=== PATIENT | male | born 1995 | race Caucasian/White ===

== ENCOUNTER 2016-08-09 00:25 | Emergency (ER) | payer BC ==
--- NOTE | 2016-08-09 02:43 | ED ORDER SUMMARY ---
..... Patient: YVAN TY OrderSheet [facility] VisitID: [id number] [place] [address] 21y, M Registration Date/Time: 08/09/2016 ORDER SHEET Weight: 74.8 kg (stated) Allergies: No Known Drug Allergy GENERAL ORDERS: Splint (UE) (Right) (Metal / foam, Volar) (02:08/09/2016 Alvin SOTO) (2:40 HSoule) Dress Wounds (:08/09/2016 Alvin SOTO) (2:40 HSoule) MEDICATION ORDERS: Keflex PO 500 mg (NOW) (02:08/09/2016 Alvin SOTO) (Ack 2:29 HSoule) (2:32 HSoule) Hydrocodone-APAP PO 5/325 mg (NOW) (02:08/09/2016 Alvin SOTO) (Ack 2:29 HSoule) (2:32 HSoule) IV FLUIDS: ORDER SHEET NOTES: [Electronically signed by Sunita Parker (03:02 08/09/2016)] [Electronically signed by Joseph Reddy MD (21:06 08/11/2016)] [Electronically locked/signed by Sunita Parker (03:02 08/09/2016)]
--- NOTE | 2016-08-09 02:43 | ED NURSING NOTES ---
Clinical Report - Nurses [facility] [place] [address] 08/09/2016 0:25 Patient: YVAN TY TRIAGE Triage time 01:Aug 09 2016. Acuity: LEVEL 3. Chief Complaint: LACERATION. SEPSIS SCREEN: Sepsis Screen: negative. Negative (no infection suspected/documented). --01:03 Sunita Parker 01:00 08/09/16. BP: 115/61. HR: 75. RR: 18. O2 saturation: 100% on room air. Temp: 98.4 F (oral). Pain level now: 02/19. --01:03 Sunita Parker KEVIN COMA SCORE: [place] Coma Scale: 15- eyes open spontaneously (4); best verbal response- oriented x 4 (5); best motor response- obeys commands (6). --01:03 Sunita Parker. Weight: 74.8 kg stated. Height/Length: 72 inches Per Patient. BMI: 22.4. --01:00 Sunita Parker. Medications Adderall Oral. --01:02 Sunita Parker. Allergies No Known Drug Allergy. --01:02 Sunita Parker. History Arrived by private vehicle. Historian: patient. Accompanied by family. Primary physician (none). Location of injuries: right palm, right middle finger and right ring finger. This occurred just prior to arrival. Occurred at home. ( Patient states he cut his fingers on his right hand when a glass broke while he was holding it. He reports a current tetanus status. Patient reports he was able to remove all the glass from the lacerations.). PAST MEDICAL HX: Tetanus status: up-to-date. Immunizations: up-to-date. SOCIAL HX: Heavy tobacco smoker (cigarette)- less than 1 pack per day. History of drug use: marijuana. No alcohol use. No infectious disease exposure. ABUSE ASSESSMENT: No report of abuse. FALL RISK ASSESSMENT: Fall risk assessment completed. No fall risk identified. NUTRITIONAL RISK ASSESSMENT: The nutritional risk assessment revealed no deficiencies. FUNCTIONAL ASSESSMENT: Functional assessment: no impairments noted. LEARNING NEEDS ASSESSMENT: The learning needs assessment revealed no barriers. SKIN INTEGRITY ASSESSMENT: Skin integrity risk assessment completed. No skin integrity risk identified. --01:03 Sunita Parker. PROBLEMS: ADD - Attention Deficit Disorder. Hepatitis. --01:02 Sunita Parker. ADDITIONAL SURGERIES: Appendectomy. --01:02 Sunita aPrker. Interventions ID band on patient. To treatment room. --01:03 Sunita Parker. PHYSICAL ASSESSMENT Ambulatory to room. GENERAL / NEURO / PSYCH: Alert. Oriented X 4. Appears in no acute distress. RESPIRATORY: Respirations not labored. CVS: Normal heart rate and rhythm. EXTREMITIES: Right hand: subcutaneous 2.5 cm laceration with controlled bleeding localized to the distal and palmar aspect of the hand. SKIN: Skin is warm and dry. --01:04 Sunita Parker. NURSING PROGRESS NOTES Warming measures: blanket applied. Reassurance given to the patient. Two patient identifiers checked. Call light placed in reach. Side rails up x 1. Bed placed in lowest position. Brakes of bed on. Patient ready for evaluation- chart flagged. --01:04 Sunita Parker Applied clean dressing (Dressing wound with Sof-form stretch Gauze Bandage). Finger splint applied to right middle finger and ring finger by tech. --02:43 Roseanna Montez 02:25 08/09/16. WOUND REPAIR: Wound repair performed by ED physician. Assisted by one tech. The wound is linear. Preparation: suture tray set-up with 1% lidocaine. Wound cleansed per physician with sterile saline. Procedure: wound repaired with sutures (1 suture pack). Post-procedure: he was stable, no complications, bleeding controlled, neuro-vascular status intact distal to wound and dressing applied. Total time of assist / procedure: 15 minutes. --02:58 Sunita Parker 02:32 08/09/2016 Keflex (Cephalexin) PO Capsules 500 mg given. Allergies verified and confirmed 5 rights. --02:32 Sunita Parker 02:32 08/09/2016 Hydrocodone-APAP (Hydrocodone-Acetaminophen) PO 5/325 mg Tablets 1 tab given. Allergies verified, confirmed 5 rights and sedative warning given to the patient and patient's loop sewer. --02:32 Sunita Parker. DISPOSITION / DISCHARGE Condition at departure: improved and stable. No learning barriers present. Discharge instructions provided and reviewed with loop sewer and the patient. Reviewed medication(s) side effects, precautions, dosing and course information. Prescription(s) given to the patient. Reviewed wound care instructions. Activity restrictions reviewed (Limit use of right hand until cleared). Patient verbalized understanding. Written instructions provided in Indonesian. ( Follow up with hand surgeon in three days. Contact information provided to patient. Sutures may be removed in 7-10 days.). The patient was discharged by the physician. He was discharged home and accompanied by loop sewer. He left the Emergency Department ambulatory and via private vehicle. Project Builder driving. --02:57 Sunita Parker 02:56 08/09/16. BP: 136/87. HR: 68. RR: 18. O2 saturation: 98% on room air. Temp: deferred. Pain level now: 03/22. --02:57 Sunita Parker. Locked/Released at 08/09/2016 3:02 by Sunita Parker,
--- NOTE | 2016-08-09 02:43 | ED CLINICAL REPORT ---
Clinical Report - Physicians/Mid Levels [facility] [address] [place] [address] 08/09/2016 0:25 Patient: YVAN TY Time Seen: 01:19 Aug 09 2016. Arrived- By private vehicle. Historian- patient. CPT: ER phys charges level 3 plus (#242923). 2.6-7.5 ch layer of neck, hands (#[id number]). HISTORY OF PRESENT ILLNESS Chief Complaint: Injury to the right hand. The injury happened just prior to arrival. The patient sustained a laceration from broken glass. Occurred at home. Patient is experiencing moderate pain. No other injury. REVIEW OF SYSTEMS The patient sustained a laceration. No swelling, tingling, numbness, weakness or foreign body. All systems otherwise negative, except as recorded above. PAST HISTORY See nurses notes. ADD - Attention Deficit Disorder. Hepatitis. Appendectomy. The patient's dominant hand is the right. Tetanus immunization status is up-to-date. Medications: Adderall Oral. Allergies: No Known Drug Allergy. SOCIAL HISTORY Heavy tobacco smoker (cigarette)- less than 1 pack per day. History of drug use: marijuana. ADDITIONAL NOTES The nursing notes have been reviewed. PHYSICAL EXAM Vital Signs: 08/09/2016 01:00 BP: 115/61. HR: 75. RR: 18. O2 saturation: 100%. Temp: 98.4 F. Pain level now: 8/10. Appearance: Alert. Patient in mild distress. Skin: Skin warm. Extremities: Right middle finger: moderate tenderness and deep 2.0 cm laceration of the volar aspect and PIP joint; limited movement secondary to pain (diminished flexion). Neurovascular intact distally. No swelling. Right ring finger: moderate tenderness and subcutaneous 1.0 cm laceration of the volar aspect and PIP joint. Neurovascular intact distally. No swelling or deformity. No limitation in movement. No wrist injury. Extremities otherwise negative. Neuro, Vascular and Tendons: Vascular status intact. Sensation intact. Motor intact. Partial flexor tendon injury seen in right middle finger involving 75% of tendon diameter. Neuro: Oriented X 3. No motor deficit. No sensory deficit. PROGRESS AND PROCEDURES Laceration Repair: Location: right middle finger. Length: 2.0cm. Complexity: simple (local anesthesia used and sutured). Wound depth/shape- subcutaneous and linear. Distal neuro/vascular/tendon status normal. Tendon injury and laceration present. (75 % flexor tendon lac with penetration into the joint capsule.). Local anesthesia provided using 1% lidocaine with bicarb. Prepped with Hibiclens. Wound explored, cleansed and irrigated extensively with normal saline. Closure of skin: interrupted 4-0 (5 sutures). Post-procedure: he is stable and there are no complications. Bleeding is controlled and neuro-vascular status is intact distal to the wound. Dressing applied. Tetanus immunization up-to-date. Estimated blood loss: 1 mL. Laceration Repair #2: Location: right ring finger. Length: 1.0cm. Complexity: simple (local anesthesia used and sutured). Wound depth/shape- subcutaneous and linear. Wound is clean. Distal neuro/vascular/tendon status normal. Tendon examined. No tendon deficit. Local anesthesia provided using 1% lidocaine with bicarb. Prepped with Hibiclens. Wound explored, cleansed and irrigated extensively with normal saline. Closure of skin: interrupted 4-0 (2 sutures). Post-procedure: he is stable and there are no complications. Bleeding is controlled and neuro-vascular status is intact distal to the wound. Dressing applied. Tetanus immunization up-to-date. Estimated blood loss: 1 mL. Course of Care: PATIENT WILL NEED HAND SURGEON REFERRAL FOR FLEXOR TENDON LACERATION. HE'LL ALSO NEED ANTIBIOTICS FOR JOINT CAPSULE PENETRATION DIP OF THE MIDDLE FINGER. Patient/family counseled. Disposition: Discharged. Condition: stable. CLINICAL IMPRESSION Multiple deep lacerations to the right middle finger and right ring finger.No foreign body present or right fingernail injury. Partial tendon laceration of the right flexor of the third finger. Laceration is at the level of the hand (75%). No infection present. Joint capsule laceration PIP, middle , right finger. INSTRUCTIONS Elevate affected areas above chest level today, for one days. Wear aluminum splint until released. Protect wound and keep wound area clean. (Ring finger stitches can be removed in 7 days.). Change dressing twice daily. Keep wounds dry. You may wash wounds briefly, then dry. Apply neosporin twice daily. Do not work with right hand until released. (The middle finger needs to be evaluated in 3 to 5 days by a hand surgeon.). Warnings: INFECTION: Watch for signs of infection (increasing heat and redness, pus-like drainage, swelling, or increased pain). Return or see your doctor if these signs occur. Tetanus shot not given. GENERAL WARNINGS: Return or contact your physician immediately if your condition worsens or changes unexpectedly, if not improving as expected, or if other problems arise. Your Current Medications: CONTINUE TAKING THE FOLLOWING MEDICATIONS: Adderall Oral. Prescription Medications: Hydrocodone/APAP 5mg/325mg: take 1 to 2 orally every 6 hours as needed for pain. Dispense fifteen (15). No refills. Cephalexin 500mg: take 1 tab orally every 6 hours for 7 days. No refills Follow-up: Follow up with your doctor in one week. Call for an appointment. Follow up with a hand surgeon Dr Stephens Hand surgeon: [address] [place] [address] [phone], in three days. Call for the next available appointment. Understanding of the discharge instructions verbalized by patient. Discharge instructions reviewed with and understanding was verbalized by furnace operator oil or gas. (Electronically signed by Joseph Reddy MD 08/11/2016 21:06)
--- NOTE | 2016-08-09 02:43 | ED NURSING NOTES ---
Clinical Report - Nurses [facility] [place] [address] 08/09/2016 0:25 Patient: YVAN TY TRIAGE Triage time 01:Aug 09 2016. Acuity: LEVEL 3. Chief Complaint: LACERATION. SEPSIS SCREEN: Sepsis Screen: negative. Negative (no infection suspected/documented). --01:03 Sunita Parker 01:00 08/09/16. BP: 115/61. HR: 75. RR: 18. O2 saturation: 100% on room air. Temp: 98.4 F (oral). Pain level now: 02/19. --01:03 Sunita Parker KEVIN COMA SCORE: [place] Coma Scale: 15- eyes open spontaneously (4); best verbal response- oriented x 4 (5); best motor response- obeys commands (6). --01:03 Sunita Parker. Weight: 74.8 kg stated. Height/Length: 72 inches Per Patient. BMI: 22.4. --01:00 Sunita Parker. Medications Adderall Oral. --01:02 Sunita Parker. Allergies No Known Drug Allergy. --01:02 Sunita Parker. History Arrived by private vehicle. Historian: patient. Accompanied by family. Primary physician (none). Location of injuries: right palm, right middle finger and right ring finger. This occurred just prior to arrival. Occurred at home. ( Patient states he cut his fingers on his right hand when a glass broke while he was holding it. He reports a current tetanus status. Patient reports he was able to remove all the glass from the lacerations.). PAST MEDICAL HX: Tetanus status: up-to-date. Immunizations: up-to-date. SOCIAL HX: Heavy tobacco smoker (cigarette)- less than 1 pack per day. History of drug use: marijuana. No alcohol use. No infectious disease exposure. ABUSE ASSESSMENT: No report of abuse. FALL RISK ASSESSMENT: Fall risk assessment completed. No fall risk identified. NUTRITIONAL RISK ASSESSMENT: The nutritional risk assessment revealed no deficiencies. FUNCTIONAL ASSESSMENT: Functional assessment: no impairments noted. LEARNING NEEDS ASSESSMENT: The learning needs assessment revealed no barriers. SKIN INTEGRITY ASSESSMENT: Skin integrity risk assessment completed. No skin integrity risk identified. --01:03 Sunita Parker. PROBLEMS: ADD - Attention Deficit Disorder. Hepatitis. --01:02 Sunita Parker. ADDITIONAL SURGERIES: Appendectomy. --01:02 Sunita Parker. Interventions ID band on patient. To treatment room. --01:03 Sunita Parker. PHYSICAL ASSESSMENT Ambulatory to room. GENERAL / NEURO / PSYCH: Alert. Oriented X 4. Appears in no acute distress. RESPIRATORY: Respirations not labored. CVS: Normal heart rate and rhythm. EXTREMITIES: Right hand: subcutaneous 2.5 cm laceration with controlled bleeding localized to the distal and palmar aspect of the hand. SKIN: Skin is warm and dry. --01:04 Sunita Parker. NURSING PROGRESS NOTES Warming measures: blanket applied. Reassurance given to the patient. Two patient identifiers checked. Call light placed in reach. Side rails up x 1. Bed placed in lowest position. Brakes of bed on. Patient ready for evaluation- chart flagged. --01:04 Sunita Parker Applied clean dressing (Dressing wound with Sof-form stretch Gauze Bandage). Finger splint applied to right middle finger and ring finger by tech. --02:43 Roseanna Montez 02:25 08/09/16. WOUND REPAIR: Wound repair performed by ED physician. Assisted by one tech. The wound is linear. Preparation: suture tray set-up with 1% lidocaine. Wound cleansed per physician with sterile saline. Procedure: wound repaired with sutures (1 suture pack). Post-procedure: he was stable, no complications, bleeding controlled, neuro-vascular status intact distal to wound and dressing applied. Total time of assist / procedure: 15 minutes. --02:58 Sunita Parker 02:32 08/09/2016 Keflex (Cephalexin) PO Capsules 500 mg given. Allergies verified and confirmed 5 rights. --02:32 Sunita Parker 02:32 08/09/2016 Hydrocodone-APAP (Hydrocodone-Acetaminophen) PO 5/325 mg Tablets 1 tab given. Allergies verified, confirmed 5 rights and sedative warning given to the patient and patient's director drug safety. --02:32 Sunita Parker. DISPOSITION / DISCHARGE Condition at departure: improved and stable. No learning barriers present. Discharge instructions provided and reviewed with director drug safety and the patient. Reviewed medication(s) side effects, precautions, dosing and course information. Prescription(s) given to the patient. Reviewed wound care instructions. Activity restrictions reviewed (Limit use of right hand until cleared). Patient verbalized understanding. Written instructions provided in Italian. ( Follow up with hand surgeon in three days. Contact information provided to patient. Sutures may be removed in 7-10 days.). The patient was discharged by the physician. He was discharged home and accompanied by director drug safety. He left the Emergency Department ambulatory and via private vehicle. Swim Coach driving. --02:57 Sunita Parker 02:56 08/09/16. BP: 136/87. HR: 68. RR: 18. O2 saturation: 98% on room air. Temp: deferred. Pain level now: 03/22. --02:57 Sunita Parker. Locked/Released at 08/09/2016 3:02 by Sunita Parker,
--- NOTE | 2016-08-09 02:43 | ED CLINICAL REPORT ---
Clinical Report - Physicians/Mid Levels [facility] [address] [place] [address] 08/09/2016 0:25 Patient: YVAN TY Time Seen: 01:19 Aug 09 2016. Arrived- By private vehicle. Historian- patient. CPT: ER phys charges level 3 plus (#027855). 2.6-7.5 ch layer of neck, hands (#[id number]). HISTORY OF PRESENT ILLNESS Chief Complaint: Injury to the right hand. The injury happened just prior to arrival. The patient sustained a laceration from broken glass. Occurred at home. Patient is experiencing moderate pain. No other injury. REVIEW OF SYSTEMS The patient sustained a laceration. No swelling, tingling, numbness, weakness or foreign body. All systems otherwise negative, except as recorded above. PAST HISTORY See nurses notes. ADD - Attention Deficit Disorder. Hepatitis. Appendectomy. The patient's dominant hand is the right. Tetanus immunization status is up-to-date. Medications: Adderall Oral. Allergies: No Known Drug Allergy. SOCIAL HISTORY Heavy tobacco smoker (cigarette)- less than 1 pack per day. History of drug use: marijuana. ADDITIONAL NOTES The nursing notes have been reviewed. PHYSICAL EXAM Vital Signs: 08/09/2016 01:00 BP: 115/61. HR: 75. RR: 18. O2 saturation: 100%. Temp: 98.4 F. Pain level now: 8/10. Appearance: Alert. Patient in mild distress. Skin: Skin warm. Extremities: Right middle finger: moderate tenderness and deep 2.0 cm laceration of the volar aspect and PIP joint; limited movement secondary to pain (diminished flexion). Neurovascular intact distally. No swelling. Right ring finger: moderate tenderness and subcutaneous 1.0 cm laceration of the volar aspect and PIP joint. Neurovascular intact distally. No swelling or deformity. No limitation in movement. No wrist injury. Extremities otherwise negative. Neuro, Vascular and Tendons: Vascular status intact. Sensation intact. Motor intact. Partial flexor tendon injury seen in right middle finger involving 75% of tendon diameter. Neuro: Oriented X 3. No motor deficit. No sensory deficit. PROGRESS AND PROCEDURES Laceration Repair: Location: right middle finger. Length: 2.0cm. Complexity: simple (local anesthesia used and sutured). Wound depth/shape- subcutaneous and linear. Distal neuro/vascular/tendon status normal. Tendon injury and laceration present. (75 % flexor tendon lac with penetration into the joint capsule.). Local anesthesia provided using 1% lidocaine with bicarb. Prepped with Hibiclens. Wound explored, cleansed and irrigated extensively with normal saline. Closure of skin: interrupted 4-0 (5 sutures). Post-procedure: he is stable and there are no complications. Bleeding is controlled and neuro-vascular status is intact distal to the wound. Dressing applied. Tetanus immunization up-to-date. Estimated blood loss: 1 mL. Laceration Repair #2: Location: right ring finger. Length: 1.0cm. Complexity: simple (local anesthesia used and sutured). Wound depth/shape- subcutaneous and linear. Wound is clean. Distal neuro/vascular/tendon status normal. Tendon examined. No tendon deficit. Local anesthesia provided using 1% lidocaine with bicarb. Prepped with Hibiclens. Wound explored, cleansed and irrigated extensively with normal saline. Closure of skin: interrupted 4-0 (2 sutures). Post-procedure: he is stable and there are no complications. Bleeding is controlled and neuro-vascular status is intact distal to the wound. Dressing applied. Tetanus immunization up-to-date. Estimated blood loss: 1 mL. Course of Care: PATIENT WILL NEED HAND SURGEON REFERRAL FOR FLEXOR TENDON LACERATION. HE'LL ALSO NEED ANTIBIOTICS FOR JOINT CAPSULE PENETRATION DIP OF THE MIDDLE FINGER. Patient/family counseled. Disposition: Discharged. Condition: stable. CLINICAL IMPRESSION Multiple deep lacerations to the right middle finger and right ring finger.No foreign body present or right fingernail injury. Partial tendon laceration of the right flexor of the third finger. Laceration is at the level of the hand (75%). No infection present. Joint capsule laceration PIP, middle , right finger. INSTRUCTIONS Elevate affected areas above chest level today, for one days. Wear aluminum splint until released. Protect wound and keep wound area clean. (Ring finger stitches can be removed in 7 days.). Change dressing twice daily. Keep wounds dry. You may wash wounds briefly, then dry. Apply neosporin twice daily. Do not work with right hand until released. (The middle finger needs to be evaluated in 3 to 5 days by a hand surgeon.). Warnings: INFECTION: Watch for signs of infection (increasing heat and redness, pus-like drainage, swelling, or increased pain). Return or see your doctor if these signs occur. Tetanus shot not given. GENERAL WARNINGS: Return or contact your physician immediately if your condition worsens or changes unexpectedly, if not improving as expected, or if other problems arise. Your Current Medications: CONTINUE TAKING THE FOLLOWING MEDICATIONS: Adderall Oral. Prescription Medications: Hydrocodone/APAP 5mg/325mg: take 1 to 2 orally every 6 hours as needed for pain. Dispense fifteen (15). No refills. Cephalexin 500mg: take 1 tab orally every 6 hours for 7 days. No refills Follow-up: Follow up with your doctor in one week. Call for an appointment. Follow up with a hand surgeon Dr Stephens Hand surgeon: [address] [place] [address] [phone], in three days. Call for the next available appointment. Understanding of the discharge instructions verbalized by patient. Discharge instructions reviewed with and understanding was verbalized by enamel buffer. (Electronically signed by Joseph Reddy MD 08/11/2016 21:06)
--- NOTE | 2016-08-09 02:43 | ED ORDER SUMMARY ---
..... Patient: YVAN TY OrderSheet [facility] VisitID: [id number] [place] [address] 21y, M Registration Date/Time: 08/09/2016 ORDER SHEET Weight: 74.8 kg (stated) Allergies: No Known Drug Allergy GENERAL ORDERS: Splint (UE) (Right) (Metal / foam, Volar) (02:08/09/2016 Alvin SOTO) (2:40 HSoule) Dress Wounds (:08/09/2016 Alvin SOTO) (2:40 HSoule) MEDICATION ORDERS: Keflex PO 500 mg (NOW) (02:08/09/2016 Alvin SOTO) (Ack 2:29 HSoule) (2:32 HSoule) Hydrocodone-APAP PO 5/325 mg (NOW) (02:08/09/2016 Alvin SOTO) (Ack 2:29 HSoule) (2:32 HSoule) IV FLUIDS: ORDER SHEET NOTES: [Electronically signed by Sunita Parker (03:02 08/09/2016)] [Electronically signed by Joseph Reddy MD (21:06 08/11/2016)] [Electronically locked/signed by Sunita Parkre (03:02 08/09/2016)]
--- NOTE | 2016-08-11 21:07 | ED DISCHARGE INSTRUCTIONS ---
Patient: YVAN TY General Instructions [facility] VisitID: [id number] [place] [address] 21y, M Registration Date/Time: 08/09/2016 Multiple deep lacerations to the right middle finger and right ring finger.No foreign body present or right fingernail injury. Partial tendon laceration of the right flexor of the third finger. Laceration is at the level of the hand (75%). No infection present. Joint capsule laceration PIP, middle , right finger. INSTRUCTIONS Elevate affected areas above chest level today, for one days. Wear aluminum splint until released. Protect wound and keep wound area clean. (Ring finger stitches can be removed in 7 days.). Change dressing twice daily. Keep wounds dry. You may wash wounds briefly, then dry. Apply neosporin twice daily. Do not work with right hand until released. (The middle finger needs to be evaluated in 3 to 5 days by a hand surgeon.). Warnings: INFECTION: Watch for signs of infection (increasing heat and redness, pus-like drainage, swelling, or increased pain). Return or see your doctor if these signs occur. Tetanus shot not given. GENERAL WARNINGS: Return or contact your physician immediately if your condition worsens or changes unexpectedly, if not improving as expected, or if other problems arise. Your Current Medications: CONTINUE TAKING THE FOLLOWING MEDICATIONS: Adderall Oral. Prescription Medications: Hydrocodone/APAP 5mg/325mg: take 1 to 2 orally every 6 hours as needed for pain. Dispense fifteen (15). No refills. Cephalexin 500mg: take 1 tab orally every 6 hours for 7 days. No refills Follow-up: Follow up with your doctor in one week. Call for an appointment. Follow up with a hand surgeon Dr Stephens Hand surgeon: [address] [place] [address] [phone] [place], in three days. Call for the next available appointment. Understanding of the discharge instructions verbalized by patient. Discharge instructions reviewed with and understanding was verbalized by energy conservation representative. ADDITIONAL INFORMATION Laceration (All Closures) Alaceration is a cut through the skin. This will usually require stitches (sutures) or olvin if it is deep. Minor cuts may be treated with a surgical tape closure orskin glue. Home care The following guidelines will help you care for your laceration at home: Extremity, face, or trunk wounds Keep the wound clean and dry. If a bandage was applied and it becomes wet or dirty, replace it. Otherwise, leave it in place for the first 24 hours. If stitches or olvin were used, clean the wound daily. After removing the bandage, wash the area with soap and water. Use a wet cotton swab to loosen and remove any blood or crust that forms. The doctor may prescribe an antibiotic cream or ointment to prevent infection. Do not stop taking this medication until you have finished the prescribed course or the doctor tells you to stop. The doctor may also prescribe medications for pain. Follow the doctors instructions for taking these medications. You may remove the bandage to shower as usual after the first 24 hours, but do not soak the area in water (no swimming) until the stitches or olvin are removed. If surgical tape was used, keep the area clean and dry. If it becomes wet, blot it dry with a towel. If skin glue was used, do not scratch, rub, or pick at the adhesive film. Do not place tape directly over the film. Do not apply liquid, ointment, or creams to the wound while the film is in place. Do not clean the wound with peroxide and do not apply ointments. Avoid activities that cause heavy sweating until the film has fallen off. Protect the wound from prolonged exposure to sunlight or tanning lamps. You may shower as usual but do not soak the wound in water (no baths or swimming). The film will fall off by itself in 510 days. Scalp wounds During the first two days, you may carefully rinse your hair in the shower to remove blood, glass or dirt particles. After two days, you may shower and shampoo your hair normally. Do not soak your scalp in the tub or go swimming until the stitches or olvin have been removed. Talk with your doctor before applying any antibiotic ointment to the wound. Mouth wounds Eat soft foods to reduce pain. If the cut is inside of your mouth, clean by rinsing after each meal and at bedtime with a mixture of equal parts water and hydrogen peroxide (do not swallow!). Or, you can use a cotton swab to directly apply hydrogen peroxide onto the cut. Mouth wounds can be painful when eating. You may use an [id number] local numbing solution for pain relief. If this is not available, you may use any numbing solution for teething babies. You may apply this directly to the sores with a cotton-tip swab or with your finger. Follow-up care Follow up with your health care provider. Most skin wounds heal within ten days. Mouth and facial wounds heal within five days. However, even with proper treatment, a wound infection may sometimes occur. Therefore, you should check the wound daily for signs of infection listed below. Stitches should be removed from the face within five days; stitches and olvin should be removed from other parts of the body within 714 days. If dissolving stitches were used in the mouth, these will fall out or dissolve without the need for removal. If tape closures were used, remove them yourself if they have not fallen off after 7 days. Ifskin glue was used, the film will fall off by itself in 510 days. When to seek medical care Get prompt medical attention if any of these occur: Bleeding not controlled by direct pressure Signs of infection, including increasing pain in the wound, increasing wound redness or swelling, or pus coming from the wound Fever of 100.4F (38C) or higher, or as directed by your health care provider Stitches or olvin come apart or fall out or surgical tape falls off before 7 days Wound edges re-open Laceration, Extremity (Sutures, [place], Or Tape) A laceration is a cut through the skin. This will usually require stitches (sutures) or olvin if it is deep. Minor cuts may be treated with surgical tape closures. Home care The following guidelines will help you care for your laceration at home: Keep the wound clean and dry. If a bandage was applied and it becomes wet or dirty, replace it. Otherwise, leave it in place for the first 24 hours, then change it once a day or as directed. If stitches or olvin were used, clean the wound daily: After removing the bandage, wash the area with soap and water. Use a wet cotton swab to loosen and remove any blood or crust that forms. After cleaning, keep the wound clean and dry. Talk with your doctor before applying any antibiotic ointment to the wound. Reapply the bandage. You may remove the bandage to shower as usual after the first 24 hours, but do not soak the area in water (no swimming) until the stitches or olvin are removed. If surgical tape closures were used, keep the area clean and dry. If it becomes wet, blot it dry with a towel. The doctor may prescribe an antibiotic cream or ointment to prevent infection. Do not stop taking this medication until you have finished the prescribed course or the doctor tells you to stop. The doctor may also prescribe medications for pain. Follow the doctors instructions for taking these medications. If you have chronic liver or kidney disease or ever had a stomach ulcer or GI bleeding, talk with your doctor before using these medicines. Follow-up care Follow up with your health care provider. Most skin wounds heal within ten days. However, an infection may sometimes occur despite proper treatment. Therefore, check the wound daily for the signs of infection listed below. Stitches and olvin should be removed within 714 days. If surgical tape closures were used, you may remove them after 10 days, if they have not fallen off by then. Notify your doctor if you notice persistent numbness or weakness in the injured extremity. (Note:A radiologist will review any X-rays that were taken. We will notify you of any new findings that may affect your care.) When to seek medical care Get prompt medical attention if any of these occur: Increasing pain in the wound Redness, swelling, or pus coming from the wound Fever of 100.4F (38C) or higher, or as directed by your health care provider If stitches or olvin come apart or fall out before your next appointment If the surgical tape closures fall off within seven days, or the wound edges re-open Bleeding not controlled by direct pressure Laceration, Tendon A tendon is a thick cord that joins muscle to bone and causes the joints to bend and straighten. One of your tendons has been cut. A tendon cut may be partial or complete. A complete cut of the tendon and a severe partial cut will need stitches (sutures) in the tendon. Smaller cuts in the tendon do not require stitches; however, the cut in the skin will need to be closed with stitches or olvin. A cut tendon takes about 6 weeks to regain its full strength. Forceful use of the tendon too soon could cause the weakened tendon to tear apart. Antibiotics may be prescribed to reduce the risk of infection in the tendon. Some tendons are located close to the nerves, therefore, it is possible to bruise or cut a nerve when you injure a tendon. This may cause numbness or weakness of the hand or foot. Because of local pain and swelling at the time of injury it can be difficult to fully assess nerve function. If you notice numbness or weakness that persists, notify your doctor. A nerve repair can be done 5-10 days after injury. Home Care: Keep the injured part elevated during the first 48 hours to reduce swelling and pain. If a splint was applied, leave it in place until your next exam (unless told otherwise). Keep the part dry when bathing by covering it in a plastic bag sealed with a rubber band at the top end. If no splint was applied, you may change the bandage after 24 hours and begin cleaning the wound once a day with soap and water. After removing the bandage, wash the area with soap and water. Use a wet cotton swab (Q tip) to loosen and remove any blood or crust that forms.After cleaning, apply a thin layer of [id number] antibiotic ointment. This will keep the wound clean and make it easier to remove the stitches or olvin. Reapply a fresh bandage. You may remove the bandage to shower as usual after the first 24 hours, but do not soak the area in water (no swimming) until the stitches or olvin are removed. If antibiotics were prescribed, take them until they are gone. You may use acetaminophen (Tylenol) or ibuprofen (Motrin, Advil) to control pain, unless another pain medicine was prescribed. [ NOTE : If you have chronic liver or kidney disease or ever had a stomach ulcer or GI bleeding, talk with your doctor before using these medicines.] Follow Up: Most skin wounds heal within ten days. However, an infection may sometimes occur despite proper treatment. Therefore, check your wound daily f or the warning signs listed below. Stitches placed in the tendon will not need to be removed. Stitches or olvin placed in the skin will be removed in 7-10 days. Be sure to keep your appointment for removal. At your follow up visit, talk to your doctor about when to begin exercising the tendon in order to prevent stiffness. Notify your doctor if you notice persistent numbness or weakness in the injured extremity.We will notify you of any new findings that may affect your care. Get Prompt Medical Attention If Any Of The Following Occur: Increasing pain in the wound Redness, swelling or pus coming from the wound Fever of 100.4F (38C) or higher, or as directed by your healthcare provider Stitches or olvin come apart or fall out before your next appointment Bleeding is not controlled by direct pressure Bandage Change If the bandage becomes wet or dirty, replace it. Otherwise, leave it in place for the first 24 hours. Then once a day: After removing the bandage, wash the area with soap and water. Use a wet cotton swab to loosen and remove any blood or crust that forms on the wound. After cleaning, apply a thin layer of antibiotic ointment or cream. Reapply the bandage. You may shower as usual after the first 24 hours. If the bandage is on an arm or leg, cover it with a plastic bag rubber banded at both ends before showering. No tub baths or swimming until the bandage is removed and the wound healed (at least 7 days). You have been given the following additional information: Laceration, All Laceration, Extrem (Suture, Staple, Or Tape) Laceration, Tendon Dressing Change Do not work with right hand until released. (Electronically signed by Joseph Reddy MD 08/11/2016 21:06)
--- NOTE | 2016-08-11 21:07 | ED MAR SUMMARY ---
..... Medication Administration Record [facility] [address] [place] [address] Patient: YVAN TY Visit ID: [id number] 21y, M Weight: 74.8 kg Height/Length: 72 in BMI: 22.4 ALLERGIES: No Known Drug Allergy Given 02:08/09/2016 Sunita Parker, Medication Administered: KEFLEX [PO] (CEPHALEXIN), Dose: 500 mg Capsules PO. Medication Ordered: Keflex PO 500 mg (NOW). Given 02:08/09/2016 Sunita Parker, Medication Administered: HYDROCODONE-APAP [PO] (HYDROCODONE-ACETAMINOPHEN), Dose: 1 tab 5/325 mg Tablets PO. Medication Ordered: Hydrocodone-APAP PO 5/325 mg (NOW).
--- NOTE | 2016-08-11 21:07 | ED MED RECONCILIATION SUMMARY ---
Patient: YVAN TY Medication Reconciliation Report [facility] VisitID: [id number] [place] [address] 21y, M Registration Date/Time: 08/09/2016 Weight: 74.8 kg Height/Length: 72 in. BMI: 22.4 ALLERGIES: No Known Drug Allergy The patient's Home Medications are listed below: CONTINUE TAKING THE FOLLOWING MEDICATIONS: Adderall Oral The source(s) of the original Home Medication information: Not obtained. The following Medications were given to the patient in the Emergency Department: Keflex [PO] PO 500 mg, administered: 08/09/2016 2:32:00 AM Hydrocodone-APAP [PO] PO 1 tab, administered: 08/09/2016 2:32:00 AM The following Medications were prescribed to the patient: Hydrocodone/APAP 5mg/325mg: take 1 to 2 orally every 6 hours as needed for pain. Dispense fifteen (15). No refills. -- Joseph Reddy MD Cephalexin 500mg: take 1 tab orally every 6 hours for 7 days. No refills -- Joseph Reddy MD
--- NOTE | 2016-08-11 21:07 | ED MED RECONCILIATION SUMMARY ---
Patient: YVAN TY Medication Reconciliation Report [facility] VisitID: [id number] [place] [address] 21y, M Registration Date/Time: 08/09/2016 Weight: 74.8 kg Height/Length: 72 in. BMI: 22.4 ALLERGIES: No Known Drug Allergy The patient's Home Medications are listed below: CONTINUE TAKING THE FOLLOWING MEDICATIONS: Adderall Oral The source(s) of the original Home Medication information: Not obtained. The following Medications were given to the patient in the Emergency Department: Keflex [PO] PO 500 mg, administered: 08/09/2016 2:32:00 AM Hydrocodone-APAP [PO] PO 1 tab, administered: 08/09/2016 2:32:00 AM The following Medications were prescribed to the patient: Hydrocodone/APAP 5mg/325mg: take 1 to 2 orally every 6 hours as needed for pain. Dispense fifteen (15). No refills. -- Joseph Reddy MD Cephalexin 500mg: take 1 tab orally every 6 hours for 7 days. No refills -- Joseph Reddy MD
--- NOTE | 2016-08-11 21:07 | ED MAR SUMMARY ---
..... Medication Administration Record [facility] [address] [place] [address] Patient: YVAN TY Visit ID: [id number] 21y, M Weight: 74.8 kg Height/Length: 72 in BMI: 22.4 ALLERGIES: No Known Drug Allergy Given 02:08/09/2016 Sunita Parker, Medication Administered: KEFLEX [PO] (CEPHALEXIN), Dose: 500 mg Capsules PO. Medication Ordered: Keflex PO 500 mg (NOW). Given 02:08/09/2016 Sunita Parker, Medication Administered: HYDROCODONE-APAP [PO] (HYDROCODONE-ACETAMINOPHEN), Dose: 1 tab 5/325 mg Tablets PO. Medication Ordered: Hydrocodone-APAP PO 5/325 mg (NOW).
== END 2016-08-09 02:55 | disposition home or self-care (01) ==
LOC: ED SRH 00:25
DX: S66.122A Laceration of flexor muscle, fascia and tendon of right middle finger at wrist and hand level, initial encounter (principal); S61.214A Laceration without foreign body of right ring finger without damage to nail, initial encounter; W25.XXXA Contact with sharp glass, initial encounter; Y93.89 Activity, other specified; Y99.8 Other external cause status; Y92.009 Unspecified place in unspecified non-institutional (private) residence as the place of occurrence of the external cause; F17.210 Nicotine dependence, cigarettes, uncomplicated; Z90.49 Acquired absence of other specified parts of digestive tract

== ENCOUNTER 2016-10-16 15:05 | Outpatient (CLI) | payer BC, OTHER ==
--- NOTE | 2016-10-16 16:20 | DIAGNOSTIC IMAGING REPORT ---
PROCEDURE: CT ABDOMEN/PELVIS W/O CONTRAST INDICATION: HEMATURIA TECHNIQUE: Axial CT images were obtained through the abdomen and pelvis without IV contrast. Coronal and sagittal reformations were created. COMPARISON: 08/21/2015 FINDINGS: There are multiple, at least four punctate nonobstructing intrarenal calcifications on the right, and at least two nonobstructing intrarenal calcifications in the left kidney. No hydroureter or hydronephrosis. No ureteral calculi. There is a 2 mm calcification within the urinary bladder closer to the left ureterovesicular junction. Numerous nonenlarged periaortic retroperitoneal lymph nodes, and numerous mildly prominent mesenteric lymph nodes. These are probably reactive/physiologic. No bulky adenopathy. Clear lung bases. Normal size heart. No hiatal hernia. The unenhanced appearance of the liver, gallbladder, adrenal glands, pancreas and spleen is normal. Normal aorta and inferior vena cava. There are no suspicious calcifications or masses. The stomach, upper bowel loops, and mesentery appears normal. Intact anterior abdominal wall. No free fluid, or inflammation. The unenhanced appearance of the prostate gland, seminal vesicles, pelvic vessels, and pelvic bowel loops is normal. Non-visualized appendix. No free fluid, or mass. Intact osseous structures. IMPRESSION: 1. 2 mm calcification within the posterior urinary bladder consistent with a recently passed calculus. No residual hydronephrosis or hydroureter. 2. Multiple nonobstructing bilateral intrarenal calculi. 3. Findings called to Martina Nuñez in the Urgent Care clinic. All CT scans at this facility use dose modulation, iterative reconstruction, and/or weight-based dosing when appropriate to reduce radiation dose to as low as reasonably achievable.
== END 2016-10-16 23:00 | disposition home or self-care (01) ==
LOC: CT SRH 15:05
DX: N20.0 Calculus of kidney (principal); Z87.442 Personal history of urinary calculi

== ENCOUNTER 2016-11-11 13:24 | Emergency (ER) | payer BC, OTHER ==
--- NOTE | 2016-11-11 14:19 | DIAGNOSTIC IMAGING REPORT ---
PROCEDURE: CT HEAD WITHOUT CONTRAST INDICATION: HEADACHE TECHNIQUE: Axial CT images were acquired through the head. Coronal and sagittal reformations were created. COMPARISON: None. FINDINGS: No intracranial hemorrhage or extraaxial fluid collections. Ventricles are normal in size, shape and position. There is no mass, mass effect or midline shift. The bray-white matter differentiation is normal. There is no edema. The calvarium is intact. The paranasal sinuses and mastoid air cells are normally aerated. The extracranial soft tissues and orbits are normal. IMPRESSION: 1. No CT evidence of acute intracranial process. 2. Findings discussed with Sky at 02:[address] scans at this facility use dose modulation, iterative reconstruction, and/or weight-based dosing when appropriate to reduce radiation dose to as low as reasonably achievable.
--- NOTE | 2016-11-11 14:24 | DIAGNOSTIC IMAGING REPORT ---
PROCEDURE: XR CERVICAL SPINE 2 OR 3 VIEW INDICATION: NECK TRAUMA/INJURY TECHNIQUE: Three views. COMPARISON: None. FINDINGS: Osseous structures and disc spaces are normal. No evidence of an acute process or fracture. IMPRESSION: 1. Negative cervical spine.
--- NOTE | 2016-11-11 14:30 | ED ORDER SUMMARY ---
..... Patient: YVAN TY OrderSheet [facility] VisitID: [id number] [place] [address] 21y, M Registration Date/Time: 11/11/2016 ORDER SHEET Weight: 83.0 kg (stated) Allergies: No Known Drug Allergy GENERAL ORDERS: Cervical Spine 2 or 3V Urgent (13:47 11/11/2016 Sahra P.A.-C) (Ack 13:49 LNations ER Tech1) (14:06 LNations ER Tech1) CT Head wo Cont Urgent (13:47 11/11/2016 Sahra Ojeda.A.-C) (Ack 13:49 LNations ER Tech1) (14:06 LNations ER Tech1) MEDICATION ORDERS: IV FLUIDS: ORDER SHEET NOTES: [Electronically signed by Karlene Swanson P.A.-C (14:55 11/11/2016)] [Electronically signed by Zhao Ferris R.N. (19:13 11/11/2016)] [Electronically locked/signed by Zhao Ferris R.N. (19:13 11/11/2016)]
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
--- NOTE | 2016-11-11 14:30 | ED ORDER SUMMARY ---
..... Patient: YVAN TY OrderSheet [facility] VisitID: [id number] [place] [address] 21y, M Registration Date/Time: 11/11/2016 ORDER SHEET Weight: 83.0 kg (stated) Allergies: No Known Drug Allergy GENERAL ORDERS: Cervical Spine 2 or 3V Urgent (13:47 11/11/2016 Sahra P.A.-C) (Ack 13:49 LNations ER Tech1) (14:06 LNations ER Tech1) CT Head wo Cont Urgent (13:47 11/11/2016 Sahra Ojeda.A.-C) (Ack 13:49 LNations ER Tech1) (14:06 LNations ER Tech1) MEDICATION ORDERS: IV FLUIDS: ORDER SHEET NOTES: [Electronically signed by Karlene Swanson P.A.-C (14:55 11/11/2016)] [Electronically signed by Zhao Ferris R.N. (19:13 11/11/2016)] [Electronically locked/signed by Zhao Ferris R.N. (19:13 11/11/2016)]
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
--- NOTE | 2016-11-11 19:14 | ED MAR SUMMARY ---
..... Medication Administration Record [facility] [address], [place] [id number] Patient: YVAN TY Visit ID: [id number] 21y, M Weight: 83.0 kg Height/Length: 72 in BMI: 24.8 ALLERGIES: No Known Drug Allergy
--- NOTE | 2016-11-11 19:14 | ED MED RECONCILIATION SUMMARY ---
Patient: YVAN TY Medication Reconciliation Report [facility] VisitID: [id number] [address] [place] [address] 21y, M Registration Date/Time: 11/11/2016 Weight: 83.0 kg Height/Length: 72 in. BMI: 24.8 ALLERGIES: No Known Drug Allergy The patient's Home Medications are listed below: THE FOLLOWING MEDICATIONS NEED TO BE RECONCILED: Adderall (30mg) Oral 2 tabs Methadone HCl Oral 100 mg The source(s) of the original Home Medication information: Not obtained. The following Medications were given to the patient in the Emergency Department: None. The following Medications were prescribed to the patient: Take OTC medications according to label instructions. Available over the counter. -- Karlene Swanson, P.A.-C Acetaminophen (available over the counter): take according to label instructions. -- Karlene Swanson, P.A.-C Motrin (available over the counter): take according to label instructions. -- Karlene Swanson, P.A.-C
--- NOTE | 2016-11-11 19:14 | ED DISCHARGE INSTRUCTIONS ---
Patient: YVAN TY General Instructions [facility] VisitID: [id number] [place] [address] 21y, M Registration Date/Time: 11/11/2016 Acute neck pain. Minor closed head injury. Concussion. No loss of consciousness. INSTRUCTIONS Apply ice. No strenuous activity. OTC Medications: Take OTC medications according to label instructions. Available over the counter. Acetaminophen (available over the counter): take according to label instructions. Motrin (available over the counter): take according to label instructions. Follow-up: Follow up with your doctor as needed. ADDITIONAL INFORMATION Neck Sprain Or Strain A sudden force that causes turning or bending of the neck (such as in a car accident) can stretch or tear muscles (strain) and ligaments (sprain) and cause neck pain. Sometimes neck pain occurs after a simple awkward movement. In either case, muscle spasm is commonly present and contributes to the pain. Unless you had a forceful physical injury (for example, a car accident or fall), X-rays are usually not ordered for the initial evaluation of neck pain. If pain continues and dose not respond to medical treatment, X-rays and other tests may be performed at a later time. Home care The following guidelines will help you care for your injury at home: You may feel more soreness and spasm the first few days after the injury. Reduce your activity level until symptoms begin to improve. When lying down, use a comfortable pillow that supports the head and keeps the spine in a neutral position. The position of the head should not be tilted forward or backward. Use ice packs (ice in a plastic bag, wrapped in a towel) to treat acute pain. Apply for 20 minutes every 24 hours during the first two days. Then, begin local heat (hot shower, hot bath or heating pad) andmassageto reduce muscle spasm. Some patients feel best alternating hot and cold treatments, or just staying with one method only. Do what feels the best to you and gives the most relief. You may use acetaminophen or ibuprofen to control pain, unless another pain medicine was prescribed.If you have chronic liver or kidney disease or ever had a stomach ulcer or GI bleeding, talk with your doctor before using these medicines. Follow-up care Follow up with your physician or this facility if your symptoms do not show signs of improvement. Physical therapy may be needed. If you had X-rays today, they didnt show any broken bones, breaks, or fractures. Sometimes fractures dont show up on the first X-ray. Bruises and sprains can sometimes hurt as much as a fracture. These injuries can take time to heal completely. If your symptoms dont improve or they get worse, talk with your doctor. You may need a repeat X-ray. When to seek medical care Get prompt medical attention if any of the following occur: Pain becomes worse or spreads into your arms Weakness or numbness in one or both arms Head Injury, No Wake-Up (Adult) You have had a head injury. It does not appear serious at this time. Symptoms of a more serious problem (concussion, bruising, or bleeding in the brain) may appear later. Therefore, watch for the WARNING SIGNS listed below. Home Care: Your healthcare provider will tell you whether its okay to drive. If so, you can drive yourself home. For the next day or so, be careful when driving or using heavy machinery until you are sure you have no delayed symptoms. During the next 24 hours someone must stay with you to check for the signs below. It is not necessary to stay awake or be awakened during the night. If you have swelling of the face or scalp, apply an ice pack (ice cubes in a plastic bag, wrapped in a towel) for 20 minutes. Do this every 1-2 hours until the swelling starts to go down. Do not use aspirin or ibuprofen (Motrin, Advil) after a head injury.You may use acetaminophen (Tylenol)to control pain, unless another pain medicine was prescribed. [NOTE: If you have chronic liver or kidney disease or ever had a stomach ulcer or GI bleeding, talk with your doctor before using these medicines.] For the next 24 hours: Do not take alcohol, sedatives or medicines that make you sleepy. Avoid strenuous activities. No lifting or straining. If you have had any symptoms of a concussion today (nausea, vomiting, dizziness, confusion, headache, memory loss or if you were knocked out), do not return to sports or any activity that could result in another head injury until all symptoms are gone and you have been cleared by your doctor. A second head injury before fully recovering from the first one can lead to serious brain injury. Follow Up with your doctor if symptoms are not improving after 24 hours, or as directed. [NOTE: A radiologist will review any X-rays or CT scans that were taken. We will notify you of any new findings that may affect your care.] Get Prompt Medical Attention if any of the followingWARNING SIGNS occur: Repeated vomiting Severe or worsening headache or dizziness Unusual drowsiness, or unable to awaken as usual Confusion or change in behavior or speech, memory loss, blurred vision Convulsion (seizure) Increasing scalp or face swelling Redness, warmth or pus from the swollen area Fluid drainage or bleeding from the nose or ears Concussion (No Wake-Up) A concussion happens when you hit your head with enough force to shake up the brain. This may cause you to lose consciousness be "knocked out" - but not always. Depending on how hard you hit your head, it will take from a few hours up to a few days to get better. Sometimes symptoms may last a few months or longer. This is called post-concussion syndrome. At first, you may have a headache, nausea, vomiting, or dizziness. You may also have problems concentrating or remembering things. This is normal. Symptoms should get better as the hours and days go by. Symptoms that get worse could be a sign of a more serious injury. This might be a bruise or bleeding in the brain. Thats why its important to watch for the warning signs listed below. Home care Follow these tips to help care for yourself at home: During the next day (24 hours) someone must stay with you to check for the signs below. If your face or scalp swells, apply an ice pack for 20 minutes every 1 to 2 hours. Do this until the swelling starts to go down. You can make an ice pack by putting ice cubes in a plastic bag and wrapping the bag in a towel. for 20 minutes every 1-2 hours until the swelling starts to go down. You may use acetaminophen to control pain, unless another pain medicine was prescribed. If you have chronic liver or kidney disease, talk with your doctor before using these medicines. Also talk with your doctor if you ever had a stomach ulcer or GI bleeding. For the next 24 hours: Dont drink alcohol or take sedatives or medicines that make you sleepy. Dont drive or operate machinery. Avoid doing anything strenuous. Dont lift or strain. Dont return to sports or any activity that could cause you to hit your head until all symptoms are gone and you have been cleared by your doctor. A second head injury before fully recovering from the first one can lead to serious brain injury. Follow-up care Follow up with your doctor in 1 week, or as directed. Note: A radiologist will review any X-rays or CT scans that were taken. You will be told of any new findings that may affect your care. When to seek medical care Get prompt medical attention if any of these occur: Repeated vomiting Headache or dizziness that is severe or gets worse Unusual drowsiness, or unable to wake up as usual Confusion or change in behavior or speech, or memory loss Blurred vision Convulsion (seizure) Swelling on the scalp or face that gets worse Redness, warmth, or pus from the swollen area Fluid draining from or bleeding from the nose or ears You have been given the following additional information: Neck Sprain/Strain HEAD INJURY, No Wake-Up (Adult) Concussion, No Wake-Up No strenuous activity. (Electronically signed by Karlene Swanson P.A.-C 11/11/2016 14:55)
--- NOTE | 2016-11-11 19:14 | ED MAR SUMMARY ---
..... Medication Administration Record [facility] [address] [place], [place] [id number] Patient: YVAN TY Visit ID: [id number] 21y, M Weight: 83.0 kg Height/Length: 72 in BMI: 24.8 ALLERGIES: No Known Drug Allergy
--- NOTE | 2016-11-11 19:14 | ED MED RECONCILIATION SUMMARY ---
Patient: YVAN TY Medication Reconciliation Report [facility] VisitID: [id number] [address] [place] [address] 21y, M Registration Date/Time: 11/11/2016 Weight: 83.0 kg Height/Length: 72 in. BMI: 24.8 ALLERGIES: No Known Drug Allergy The patient's Home Medications are listed below: THE FOLLOWING MEDICATIONS NEED TO BE RECONCILED: Adderall (30mg) Oral 2 tabs Methadone HCl Oral 100 mg The source(s) of the original Home Medication information: Not obtained. The following Medications were given to the patient in the Emergency Department: None. The following Medications were prescribed to the patient: Take OTC medications according to label instructions. Available over the counter. -- Karlene Swanson, P.A.-C Acetaminophen (available over the counter): take according to label instructions. -- Karlene Swanson, P.A.-C Motrin (available over the counter): take according to label instructions. -- Karlene Swanson, P.A.-C
== END 2016-11-11 14:50 | disposition home or self-care (01) ==
LOC: ED SRH 13:24
DX: M54.2 Cervicalgia (principal); S06.0X0A Concussion without loss of consciousness, initial encounter; V43.52XA Car driver injured in collision with other type car in traffic accident, initial encounter; Y93.89 Activity, other specified